=== PATIENT | male | born 1955 | race Caucasian/White ===

== ENCOUNTER 2019-01-04 08:11 | Day surgery (SDC) | payer BC ==
[2018-12-31 15:04] VITALS: BMI 29.2
[~2019-01-04 08:11] MED LIST: LACTATED RINGERS 1,000 ML IV SCH; LIDOCAINE 1% 20 ML VIAL (10MG/ML) FOR IV START INTRADERMA PRN
[2019-01-04 08:58] VITALS: RESP 16; TEMP 97.4
[2019-01-04] MEDS ORDERED: fentaNYL (PF) 50 MCG/ML 2 ML AMP ONE (09:40)
[2019-01-04] MEDS ORDERED: MIDAZOLAM 2 MG/2 ML VIAL ONE (09:40)
[2019-01-04] MEDS ORDERED: PROPOFOL 10 MG/ML 20 ML VIAL IV ONE (09:40)
--- NOTE | 2019-01-04 09:43 | P.GSHP ---
History of Present Illness H&P Date: 01/04/19 Chief Complaint: GERD, dysphagia This a 63-year-old male referred from Dr. Gerardo Camarena. Patient is today for EGD. He's had issues with GERD and intermittent dysphagia. Past Medical History Past Medical History: Hyperlipidemia Additional Past Medical History / Comment(s): states "when eating having difficulty swallowing" History of Any Multi-Drug Resistant Organisms: None Reported Past Surgical History: Orthopedic Surgery Additional Past Surgical History / Comment(s): EGD,kevon knee arthroscopies Past Anesthesia/Blood Transfusion Reactions: No Reported Reaction Additional Past Anesthesia/Blood Transfusion Reaction / Comment(s): no hx blood transfusion Smoking Status: Former smoker - Past Family History Mother Family Medical History: Cancer Additional Family Medical History / Comment(s): breast CA, melanoma Medications and Allergies Home Medications Medication Instructions Recorded Confirmed Type Cholecalciferol (Vitamin D3) 1,000 unit PO DAILY 12/31/18 12/31/18 History [Vitamin D3] Loratadine [Claritin] 10 mg PO DAILY 12/31/18 01/04/19 History Magnesium 500 mg PO DAILY 12/31/18 01/04/19 History Multivit-Min/Folic/Vit K/Lycop 1 tab PO DAILY 12/31/18 12/31/18 History [Men's Multivitamin Tablet] [place]-3 Fatty Acids/Fish Oil [Fish 1 each PO DAILY 12/31/18 12/31/18 History Oil 1,000 mg Softgel] Omeprazole [PriLOSEC] 20 mg PO DAILY 12/31/18 01/04/19 History Simvastatin [Zocor] 20 mg PO DAILY 12/31/18 12/31/18 History Vitamin B Complex 1 each PO DAILY 12/31/18 12/31/18 History Allergies Allergy/AdvReac Type Severity Reaction Status Date / Time Sulfa (Sulfonamide Allergy Anaphylaxis Verified 12/31/18 14:56 Antibiotics) Surgical - Exam Vital Signs Temp Pulse Resp BP Pulse Ox 97.4 F L 64 16 134/88 98 01/04/19 08:55 01/04/19 08:55 01/04/19 08:55 01/04/19 08:55 01/04/19 08:55 - General well developed, well nourished, no distress - Eyes PERRL - ENT normal pinna - Neck no masses - Respiratory normal expansion - Cardiovascular Rhythm: regular - Abdomen Abdomen: soft, non tender Assessment and Plan Assessment: GERD, dysphagia. We'll perform EGD
--- NOTE | 2019-01-04 09:52 | P.OP ---
Date of Procedure: 01/04/19 Preoperative Diagnosis: GERD Postoperative Diagnosis: Antral gastritis No evidence of hiatal hernia Mild esophagitis Procedure(s) Performed: EGD Anesthesia: MAC Surgeon: Shane Kolb Pathology: other (Antrum, esophagus) Condition: stable Disposition: PACU Description of Procedure: The patient's placed on the endoscopy table in the lateral position. He received IV sedation. The gastroscope placed oropharynx and passed in the esophagus and into the stomach. Scope was then placed through the pylorus. The first and second portion of the duodenum appeared normal. The scope was then brought back the antrum this was mildly inflamed. A biopsies performed. Scope was unretroflexed and remainder stomach appeared normal. There was no significant hiatal hernia. The GE junction was at 40 cms. The distal esophagus appeared mildly inflamed and a biopsies was performed. The proximal esophagus appeared normal. Scope withdrawn for patient.
[2019-01-04 10:07] VITALS: BP 120/81; PULSE 59
== END 2019-01-04 10:57 | disposition home or self-care (01) ==
LOC: ORWHC2ENDO 08:11
PROVIDERS: ATTEND Surgery
DX: K21.0 Gastro-esophageal reflux disease with esophagitis (principal); K29.50 Unspecified chronic gastritis without bleeding; R13.10 Dysphagia, unspecified; Z87.891 Personal history of nicotine dependence; Z88.2 Allergy status to sulfonamides; E78.5 Hyperlipidemia, unspecified; K21.9 Gastro-esophageal reflux disease without esophagitis; Z80.3 Family history of malignant neoplasm of breast; Z80.8 Family history of malignant neoplasm of other organs or systems; Z79.899 Other long term (current) drug therapy
CPT/HCPCS: 88305; 43239; J2250; J3010; J2704

== ENCOUNTER → 2019-12-27 | Outpatient (CLI) | payer BC | END | disposition home or self-care (01) | LOC: LABWHC1 11:50 | PROVIDERS: ATTEND Orthopaedic Surgery | DX: U07.1 COVID-19 (principal); Z22.322 Carrier or suspected carrier of Methicillin resistant Staphylococcus aureus | CPT/HCPCS: 87635 ==

== ENCOUNTER 2019-12-30 08:31 | Day surgery (SDC) | payer BC ==
[2019-12-28 14:14] VITALS: BMI 28.8
--- NOTE | 2019-12-29 14:19 | HP ---
HISTORY AND PHYSICAL REASON FOR ADMISSION: Surgery scheduled for 12/30/2019 HISTORY OF PRESENT ILLNESS: Kishor Brooke is a 64-year-old patient seen with symptomatic left knee osteoarthritis. We discussed options for treatment. He elected to proceed with left total knee arthroplasty. Consent was obtained. Medical clearance was provided by Dr. Gerardo Larios. PAST MEDICAL HISTORY: Hypertension, hyperlipidemia. PAST SURGICAL HISTORY: Noncontributory. MEDICATIONS: , omeprazole, simvastatin. ALLERGIES: SULFA. SOCIAL HISTORY: He denies tobacco use. PHYSICAL EXAMINATION: Evaluation of the left knee range of motion 0-130. Mild effusion. Tenderness medial joint line. Crepitus medial patellofemoral compartments with range of motion. Pain with patellofemoral compression. Ligaments stable. Hip rotation without pain. Distal neurovascular exam intact. RADIOGRAPHS: Radiographs of the left knee reveal severe osteoarthritic changes. IMPRESSION: 1. Left knee osteoarthritis. 2. Hypertension. 3. Hyperlipidemia. PLAN: Left total knee arthroplasty. Surgery is 12/30/2019. MMODL / IJN: [id number] /
[~2019-12-30 08:31] MED LIST changes: +ACETAMINOPHEN TAB 500 MG TAB PO ONE; +DEXAMETHASONE SOD PHOSPHATE 10 MG/ML 1 ML VIAL IV ONE; +LIDOCAINE 1% (10MG/ML) FOR IV START INTRADERMA PRN; -LIDOCAINE 1% 20 ML VIAL (10MG/ML) FOR IV START INTRADERMA PRN; +MELOXICAM 7.5 MG TAB PO ONE; +ONDANSETRON 4 MG/2 ML VIAL IVP ONE; +ROPIVACAINE 246.25 MG, EPINEPHrine 0.5 MG, KETOROLAC 30 MG, cloNIDine HCL/PF 80 MCG, WA... MISCELLANE ONE; +SCOPOLAMINE 1.5MG/72HR PATCH TRANSDERM ONE; +TRANEXAMIC ACID 1,000 MG in SODIUM CHLORIDE 0.9% 100 ML IVPB ONE
[2019-12-30] MEDS ORDERED: MIDAZOLAM 2 MG/2 ML VIAL IV ONE (09:14)
--- NOTE | 2019-12-30 09:37 | P.ANPRN ---
Procedure Note - Anesthesia - Nerve Block Performed Left Adductor Canal Date of Procedure: 12/30/19 Procedure Start Time: 09:13 Procedure Stop Time: :29 Location of Patient: PreOp Indication: Acute Post-Operative Pain, Requested by Surgeon (Dr Simon) Sedation Type: Sedate with meaningful contact maintained Preparation: Sterile Prep, Sterile Dressing Position: Supine Catheter: Indwelling Needle Types: On-Q Needle Gauge: 21 Ultrasound used to visualize needle placement: Yes Ultrasound used to observe medication spread: Yes Injectate: 0.5% Ropivacaine (see comment for volume) (20cc) Blood Aspirated: No Pain Paresthesia on Injection Noted: No Resistance on Injection: Normal Image Stored and Saved: Yes Events: Uneventful and Well Tolerated
[2019-12-30] MEDS ORDERED: ROPIVACAINE 0.2%-NS ON-Q PUMP 1,090 MG, EMPTY PAIN BALL 1 EACH MISCELLANE PRN (09:39)
[2019-12-30] MEDS ORDERED: MIDAZOLAM 2 MG/2 ML VIAL ONE (10:06)
[2019-12-30] MEDS ORDERED: SUCCINYLCHOLINE CHLORIDE 100 MG/5 ML SYR IV ONE (10:06)
[2019-12-30] MEDS ORDERED: PROPOFOL 10 MG/ML 20 ML VIAL IV ONE (10:06)
[2019-12-30] MEDS ORDERED: fentaNYL (PF) 50 MCG/ML 2 ML AMP ONE (10:06)
[2019-12-30] MEDS ORDERED: HYDROmorphone (PF) 1 MG/ML ONE (10:06)
[2019-12-30] MEDS ORDERED: LIDOCAINE 1% INJ 10MG/ML (20 ML MDV) ONE (10:06)
[2019-12-30] MEDS ORDERED: ceFAZolin 3,000 MG in SODIUM CHLORIDE 0.9% IRRIGATIO 3,000 ML IRRIGATION ONE (10:37)
[2019-12-30] MEDS ORDERED: LACTATED RINGERS 1,000 ML IV ONE ×3 (11:15→13:17)
--- NOTE | 2019-12-30 11:59 | P.OP ---
Date of Procedure: 12/30/19 Preoperative Diagnosis: Left knee osteoarthritis Postoperative Diagnosis: Left knee osteoarthritis Procedure(s) Performed: Left total knee arthroplasty Implants: 1. Depuy attune size 7 left cruciate retaining cemented femur 2. Depuy attune size 8 fixed-bearing cemented tibial baseplate 3. Depuy attune size 7 fixed bearing cruciate retaining 6 mm polyethylene tibial insert 4. Depuy attune 41 mm all polyethylene cemented patella Anesthesia: GETA, regional (Adductor canal catheter/block), local Surgeon: Jerald Simon Agronomy Research Manager #1: Harman Barry Estimated Blood Loss (ml): 40 Pathology: other (Bone) Condition: stable Disposition: PACU Indications for Procedure: 64-year-old patient seen with symptomatic left knee osteoarthritis. He had previously been canceled for total knee arthroplasty secondary to the Covid 19 crisis. His symptoms became progressive and debilitating. He elected to proceed with total knee arthroplasty. Operative Findings: See description of procedure Description of Procedure: Patient was taken to the operative suite after having an adductor canal catheter placed by the department of anesthesia. Patient underwent a general anesthetic by the department of anesthesia. Patient was given preoperative IV intake antibiotics and TXA. A well-padded tourniquet was placed about the left lower extremity. The lower extremity was then prepped and draped in the normal sterile orthopedic fashion. The extremity was elevated, a tourniquet was insufflated to 300. A standard anterior incision was made sharply through skin. Dissection was taken down through the subcutaneous soft tissues down to the extensor mechanism. A medial arthrotomy was performed, patella was everted and knee was flexed. There was advanced osteoarthritis noted. I introduced my distal intramedullary femoral drill. I then introduced the distal femoral cutting jig. Dewey MCKAY secured the cutting jig with 2 pins. I held retractors in position while Dewey MCKAY performed the distal femoral resection through the guide area we now removed her distal femoral cutting guide. We now placed our 4-in-1 femoral cutting block and positioned and it was secured with 2 pins by Dewey MCKAY while I held the block in position. The distal femoral finishing was now completed. A proximal tibial cutting guide was positioned. I held the guide in the appropriate position with both hands well Dewey MCKAY inserted stabilizing pins into the guide. Proximal tibial cut was made. We now placed a trial femoral component into position, along with an appropriate size tibial tray and insert. We now took the knee through range of motion and had full extension good flexion and good overall soft tissue balance noted. The patella was everted and stabilized with 2 towel clips held by Dewey MCKAY while I performed a flush with patellar quad tendon utilizing a fresh sawblade. We templated the patella, appropriate drill holes were made. An appropriate trial patella was positioned, knee was taken through full range of motion with the patella tracking very nicely. The trial patella was removed. Drill holes were made through the femoral component. All trial components were removed after marking off the appropriate rotation of the tibia. Retractors were now positioned along the proximal tibia. An appropriate keel punch was made with the appropriate size tibial guide by myself on Dewey MCKAY assisted by holding retractors. At this point appropriate size implants were chosen and opened. The joint was irrigated copiously with pulse lavage mechanical irrigation. The posterior capsule was infiltrated with local analgesic. The wound was irrigated with pulse lavage mechanical irrigation. We mixed antibiotic methylmethacrylate. We placed the knee into flexion. We placed multiple retractors assisted by Dewey MCKAY to expose the proximal tibia. Once the methyl methacrylate was ready, the tibial component was cemented into place removing any excess methylmethacrylate form by both myself and Deewy MCKAY. The femoral component was cemented into place removing the removing any excess methylmethacrylate performed by both myself and Dewey MCKAY. We then inserted the appropriate size polyethylene tibial insert. We made sure that it was locked into position. We took the knee into full extension, and then back in a flexion making sure we had removed any excess methylmethacrylate. The patellar component was then cemented down and secured with clamp. Excess methylmethacrylate removed. We kept the knee in full extension, patellar clamp in position until methylmethacrylate had hardened. Once it had hardened the patellar clamp was removed. The knee was taken through full range of motion. The patella tracked nicely. There was good soft tissue balancing. The tourniquet was now released. Additional hemostasis was achieved via electrocautery. A second gram of TXA was given. The wound again was irrigated with pulse lavage mechanical irrigation. The superficial soft tissues were infiltrated local analgesic. The extensor mechanism was repaired with Vicryl. We checked the repair with range of motion and it was stable. The subcutaneous soft tissues were repaired with Vicryl in layers. The skin was approximated with pernio/Dermabond. Sterile dressings were applied followed by loose web roll and Joey bandage. The patient was transferred to a bed, and taken to recovery in stable and satisfactory condition. Dewey MCKAY assisted with this complex procedure.
[2019-12-30] MEDS ORDERED: ONDANSETRON 4 MG/2 ML VIAL IVP PRN (12:00)
[2019-12-30] MEDS ORDERED: NALOXONE 0.4 MG/ML 1 ML VIAL IV PRN (12:00)
[2019-12-30] MEDS ORDERED: HYDROcodone/APAP 5-325MG 1 EACH TAB PO PRN (12:00)
[2019-12-30] MEDS ORDERED: HYDROcodone/APAP 7.5-325MG 1 EACH TAB PO PRN (12:00)
[2019-12-30] MEDS ORDERED: HYDROmorphone 0.5 MG/0.5 ML SYRINGE IVP PRN ×3 (12:00)
[2019-12-30 12:22] VITALS: TEMP 97.1
[2019-12-30] MEDS: HYDROmorphone 0.5 MG/0.5 ML SYRINGE IVP PRN ×4 (12:36→13:01)
--- NOTE | 2019-12-30 12:39 | XR ---
EXAMINATION TYPE: XR knee limited LT DATE OF EXAM: 12/30/2019 CLINICAL HISTORY: Postoperative evaluation Two views of the left knee are submitted. Identified are changes of total knee arthroplasty with fem oral and tibial components appearing well seated. Postsurgical soft tissue changes are noted. Align ment is anatomic.
[2019-12-30 13:45] VITALS: RESP 18
[2019-12-30 14:55] VITALS: BP 137/78; PULSE 93
[2019-12-30] MEDS ORDERED: ONDANSETRON 4 MG/2 ML VIAL IVP ONE (15:45)
== END 2019-12-30 17:19 | disposition home health service (06) ==
LOC: OR 08:31
PROVIDERS: ATTEND Orthopaedic Surgery
DX: M17.12 Unilateral primary osteoarthritis, left knee (principal); I10 Essential (primary) hypertension; E78.5 Hyperlipidemia, unspecified; Z79.899 Other long term (current) drug therapy; Z87.891 Personal history of nicotine dependence; K21.9 Gastro-esophageal reflux disease without esophagitis; Z79.1 Long term (current) use of non-steroidal anti-inflammatories (NSAID); Z88.2 Allergy status to sulfonamides
CPT/HCPCS: 97161; 64448; 76942; 88300; 73560; 27447; C1776; C1713; J2250; J0171; J1100; J0690 ×2; J2405; J2001; J3010; J1885; J1170 ×2; J2795 ×2; J0330; J2704; J0735

== ENCOUNTER → 2022-01-10 | Outpatient (CLI) | payer MEDICARE ==
--- NOTE | 2022-01-10 08:19 | XR ---
EXAMINATION TYPE: XR Hip Complete RT DATE OF EXAM: 01/10/2022 CLINICAL HISTORY: Chronic right hip pain. TECHNIQUE: AP and frogleg views of the right hip are obtained. COMPARISON: None. FINDINGS: There is no acute fracture/dislocation evident in the right hip. The joint space in the r ight hip appears within normal limits. Subcentimeter sclerotic focus superior medial acetabulum is no nspecific favors benign bone island. Femoral head shape is maintained. The overlying soft tissue appe ars unremarkable. IMPRESSION: As above.
--- NOTE | 2022-01-10 08:20 | XR ---
EXAMINATION TYPE: XR lumbar spine 2 or 3V DATE OF EXAM: 01/10/2022 CLINICAL HISTORY: Low back pain. TECHNIQUE: Frontal and lateral images of the lumbar spine are obtained. COMPARISON: None FINDINGS: There are 5 lumbar type vertebral bodies identified. The lumbar spine shows satisfactory alignment without evidence of acute fracture or dislocation. Vertebral body heights and disk space he ights are within normal limits. Moderate multilevel anterior spurring greatest in the upper lumbar sp ine. Focal moderate right L2-L3 spurring. Additional scattered mild/moderate lateral spurring. The ov erlying soft tissue appears unremarkable. IMPRESSION: As above.
== END | disposition home or self-care (01) ==
LOC: RADXRMAIN 07:36
PROVIDERS: ATTEND Nurse Practitioner Family
DX: M25.551 Pain in right hip (principal); M25.78 Osteophyte, vertebrae; G89.29 Other chronic pain
CPT/HCPCS: 72100; 73502

== ENCOUNTER → 2024-07-18 | Outpatient (CLI) | payer MEDICARE ==
--- NOTE | 2024-07-18 11:47 | XR ---
EXAMINATION TYPE: XR chest 2V DATE OF EXAM: 07/18/2024 11:33 AM COMPARISON: None CLINICAL INDICATION: Male, 69 years old with history of R06.02 SOB, , TECHNIQUE: Frontal and lateral views FINDINGS: Heart normal size. Aorta and pulmonary vasculature within normal limits. No consolidation or pleural effusion. IMPRESSION: No acute cardiopulmonary process. [facility], Workstation: 3, 07/18/2024 11:45 AM
== END | disposition home or self-care (01) ==
LOC: RADXRMAIN 11:21
PROVIDERS: ATTEND Family Medicine
DX: R06.02 Shortness of breath (principal)
CPT/HCPCS: 71046

== ENCOUNTER 2024-11-04 08:59 | Emergency (ER) | payer MEDICARE ==
--- NOTE | 2024-11-04 09:26 | ED ---
General Adult HPI - General Chief complaint: Upper Respiratory Infection Stated complaint: Congestion, sinus issues Time Seen by Provider: 11/04/24 09:13 Source: patient, RN notes reviewed Mode of arrival: ambulatory Limitations: no limitations - History of Present Illness Initial comments: Patient is a 69-year-old male present to the emergency department for not feeling well for the past 10 to 14 days. Patient has sinus congestion. Patient has chest congestion and cough. Patient states cough is nonproductive. No fever. Patient did see his doctor and took antibiotics without improvement. Patient was then started on steroids still with no improvement. - Related Data Home Medications Medication Instructions Recorded Confirmed Loratadine [Claritin] 10 mg PO DAILY 12/31/18 12/30/19 Multivit-Min/Folic/Vit K/Lycop 1 tab PO DAILY 12/31/18 12/30/19 [Men's Multivitamin Tablet] Omeprazole [PriLOSEC] 20 mg PO HS 12/31/18 12/30/19 Acetaminophen [Tylenol Extra 1,000 mg PO DIRECTED PRN 12/28/19 12/30/19 Strength] Ibuprofen [Motrin] 800 mg PO Q8H 12/28/19 12/30/19 Simvastatin [Zocor] 40 mg PO HS 12/28/19 12/30/19 Previous Rx's Medication Instructions Recorded Aspirin [Adult Low Dose Aspirin EC] 81 mg PO BID #60 tablet. 12/30/19 Docusate [Colace] 100 mg PO DAILY #30 capsule 12/30/19 HYDROcodone/APAP 7.5-325MG [[place] 1 - 2 each PO Q6HR PRN #56 tab 12/30/19 7.5] traMADol HCl [Ultram] 50 mg PO Q6H PRN #28 tab 12/30/19 Albuterol Inhaler [Ventolin Hfa 2 puff INHALATION Q4HR PRN #1 each 11/04/24 Inhaler] Allergies Allergy/AdvReac Type Severity Reaction Status Date / Time Sulfa (Sulfonamide Allergy Anaphylaxis Verified 11/04/24 09:03 Antibiotics) Review of Systems ROS Statement: Those systems with pertinent positive or pertinent negative responses have been documented in the HPI. ROS Other: All systems not noted in ROS Statement are negative. Constitutional: Denies: fever Eyes: Denies: eye pain ENT: Reports: congestion. Denies: ear pain Respiratory: Reports: cough Cardiovascular: Denies: chest pain Gastrointestinal: Denies: abdominal pain Musculoskeletal: Denies: back pain Past Medical History Past Medical History: Hyperlipidemia Additional Past Medical History / Comment(s): states "when eating having difficulty swallowing" History of Any Multi-Drug Resistant Organisms: None Reported Past Surgical History: Orthopedic Surgery Additional Past Surgical History / Comment(s): EGD,kevon knee arthroscopies Past Anesthesia/Blood Transfusion Reactions: No Reported Reaction Additional Past Anesthesia/Blood Transfusion Reaction / Comment(s): no hx blood transfusion Past Alcohol Use History: None Reported - Past Family History Mother Family Medical History: Cancer Additional Family Medical History / Comment(s): breast CA, melanoma General Exam Limitations: no limitations General appearance: alert, in no apparent distress Head exam: Present: normocephalic Eye exam: Present: normal appearance ENT exam: Present: normal oropharynx, other (Tenderness over the frontal and maxillary sinuses) Neck exam: Present: normal inspection Respiratory exam: Present: normal lung sounds bilaterally Cardiovascular Exam: Present: regular rate, normal rhythm GI/Abdominal exam: Present: soft. Absent: tenderness Extremities exam: Present: normal inspection. Absent: pedal edema, calf tenderness Neurological exam: Present: alert Psychiatric exam: Present: normal affect, normal mood Skin exam: Present: normal color Course Vital Signs 11/04/24 09:01 Temperature 97.5 F L Pulse Rate 84 Respiratory 18 Rate Blood Pressure 142/93 O2 Sat by Pulse 99 Oximetry Medical Decision Making - Medical Decision Making Was pt. sent in by a medical professional or institution (, PA, FRAME AND SCR[employer] CRUSHER, urgent care, hospital, or correction...) When possible be specific @ -No Did you speak to anyone other than the patient for history (EMS, parent, family, police, friend...)? What history was obtained from this source @ - is present helps provide history including medications that patient recently took for his illness Did you review nursing and triage notes (agree or disagree)? Why? @ -I reviewed and agree with nursing and triage notes Were old charts reviewed (outside hosp., previous admission, EMS record, old EKG, old radiological studies, urgent care reports/EKG's, correction records)? Report findings @ -No old charts were reviewed Differential Diagnosis (chest pain, altered mental status, abdominal pain women, abdominal pain men, vaginal bleeding, weakness, fever, dyspnea, syncope, headache, dizziness, GI bleed, back pain, seizure, CVA, palpatations, mental health, musculoskeletal)? @ -Differential Fever: Pneumonia, viral URI, endocarditis, myocarditis, pericarditis, otitis, sinusitis, peritonsillar Abscess, retropharyngeal Abscess, epiglottitis, peritonitis, appendicitis, Emma cystitis, diverticulitis, hepatitis, colitis, UTI, PID, TOA, pyelonephritis, prostatitis, epididymitis, meningitis, encephalitis, pulmonary embolism, CVA, thyroid storm, pancreatitis, adrenal crisis, cavernous sinus thrombosis, this is not meant to be an all-inclusive list. EKG interpreted by me (3pts min.). @ -As above X-rays interpreted by me (1pt min.). @ -Unable to view x-rays as PACS system is down CT interpreted by me (1pt min.). @ -None done U/S interpreted by me (1pt. min.). @ -None done What testing was considered but not performed or refused? (CT, X-rays, U/S, labs)? Why? @ -None What meds were considered but not given or refused? Why? @ -Consider Tamiflu however patient is past 2 days of onset of symptoms Did you discuss the management of the patient with other professionals (professionals i.e. , PA, [employer] CRUSHER, lab, RT, psych nurse, social science research assistant, pit slagman, teacher, correctional program officer, casey saw operator)? Give summary @ -No Was smoking cessation discussed for >3mins.? @ -No Was critical care preformed (if so, how long)? @ -No Were there social determinants of health that impacted care today? How? (Homelessness, low income, unemployed, alcoholism, drug addiction, transportation, low edu. Level, literacy, decrease access to med. care, correction, rehab)? @ -No Was there de-escalation of care discussed even if they declined (Discuss DNR or withdrawal of care, Hospice)? DNR status @ -No What co-morbidities impacted this encounter? (DM, HTN, Smoking, COPD, CAD, Cancer, CVA, ARF, Chemo, Hep., AIDS, mental health diagnosis, sleep apnea, morbid obesity)? @ -None Was patient admitted / discharged? Hospital course, mention meds given and route, prescriptions, significant lab abnormalities, going to OR and other pertinent info. @ -Patient presents with upper respiratory symptoms and cough. Influenza positive. Chest x-ray reported as unremarkable. Patient reevaluated and updated. Patient will be discharged with albuterol inhaler as needed Undiagnosed new problem with uncertain prognosis? @ -No Drug Therapy requiring intensive monitoring for toxicity (Heparin, Nitro, Insulin, Cardizem)? @ -No Were any procedures done? @ -No Diagnosis/symptom? @ -Influenza Acute, or Chronic, or Acute on Chronic? @ -Acute Uncomplicated (without systemic symptoms) or Complicated (systemic symptoms)? @ -Default Side effects of treatment? @ -No Exacerbation, Progression, or Severe Exacerbation? @ -No Poses a threat to life or bodily function? How? (Chest pain, USA, MS, pneumonia, PE, COPD, DKA, ARF, appy, cholecystitis, CVA, Diverticulitis, Homicidal, Suicidal, threat to staff... and all critical care pts) @ -No - Lab Data Lab Results 11/04/24 Range/Units 09:04 Influenza Type A (PCR) Detected A (Not Detectd) Influenza Type B (PCR) Not Detected (Not Detectd) RSV (PCR) Not Detected (Not Detectd) SARS-CoV-2 (PCR) Not Detected (Not Detectd) Disposition Clinical Impression: Influenza Disposition: HOME SELF-CARE Condition: Stable Instructions (If sedation given, give patient instructions): Upper Respiratory Infection (ED), Influenza (ED) Additional Instructions: Prescription for inhaler sent to pharmacy as needed. Please do follow-up with primary care physician in the next couple of days for recheck. Return for difficulty breathing, uncontrolled fever, uncontrolled vomiting, worsening symptoms or other concerns. Prescriptions: Albuterol Inhaler [Ventolin Hfa Inhaler] 2 puff INHALATION Q4HR PRN #1 each PRN Reason: Dyspnea Is patient prescribed a controlled substance at d/c from ED?: No Referrals: Gerardo Larios DO [Primary Care Provider] - 1-2 days Time of Disposition: 10:47
[2024-11-04 09:45] LABS: Influenza A Detected (Not Detectd); Influenza B Not Detected (Not Detectd); RSV Not Detected (Not Detectd)
--- NOTE | 2024-11-04 10:33 | XR ---
EXAMINATION TYPE: XR chest 2V DATE OF EXAM: 11/04/2024 9:59 AM COMPARISON: 08-09 CLINICAL INDICATION: Male, 69 years old with history of cough: Shortness of breath TECHNIQUE: XR chest 2V views of the chest are obtained. FINDINGS: Scattered senescent parenchymal changes noted. Hyperinflation compatible with COPD. No evidence for infiltrate. No evidence for atelectasis. Heart size is stable. Mediastinal structures are stable and grossly unremarkable. No evidence for hilar prominence. Degenerative changes dorsal spine. IMPRESSION: 1. No evidence for acute pulmonary disease. [facility], , 11/04/2024 10:31 AM
[2024-11-04 11:00] VITALS: BP 148/99; PULSE 70; RESP 20; TEMP 98.9
== END 2024-11-04 11:00 | disposition home or self-care (01) ==
LOC: EC 08:59
DX: J10.1 Influenza due to other identified influenza virus with other respiratory manifestations (principal); Z88.2 Allergy status to sulfonamides
CPT/HCPCS: 71046; 87636; 99283